=== PATIENT | female | born 1940 | race Caucasian/White ===

== ENCOUNTER → 2017-02-02 | Outpatient (CLI) | payer OTHER, BC | LOC: CAT 14:25 | DX: J32.9 Chronic sinusitis, unspecified (principal) ==

== ENCOUNTER → 2018-07-18 | Outpatient (CLI) | payer OTHER, BC | LOC: BC 01:11 | DX: Z12.31 Encounter for screening mammogram for malignant neoplasm of breast (principal) ==

== ENCOUNTER → 2019-08-14 | Outpatient (CLI) | payer OTHER, BC | LOC: RAD 09:31 | DX: Z12.31 Encounter for screening mammogram for malignant neoplasm of breast (principal) ==

== ENCOUNTER → 2019-11-04 | Outpatient (CLI) | payer OTHER, BC | LOC: SJCVC 15:16 | DX: R94.31 Abnormal electrocardiogram [ECG] [EKG] (principal); I10 Essential (primary) hypertension; E78.2 Mixed hyperlipidemia; K21.0 Gastro-esophageal reflux disease with esophagitis; Z79.899 Other long term (current) drug therapy; Z87.891 Personal history of nicotine dependence ==

== ENCOUNTER → 2020-03-04 | Outpatient (CLI) | payer OTHER, BC | LOC: LAB 08:25 | PROVIDERS: ATTEND Family Medicine | DX: R05 Cough (principal); Z20.828 Contact with and (suspected) exposure to other viral communicable diseases ==

== ENCOUNTER → 2020-09-10 | Outpatient (CLI) | payer OTHER, BC | LOC: BC 09:51 → RAD 09:51 | PROVIDERS: ATTEND Family Medicine | DX: Z12.31 Encounter for screening mammogram for malignant neoplasm of breast (principal) ==

== ENCOUNTER → 2020-11-03 | Outpatient (CLI) | payer OTHER, BC | LOC: SJCVCIMAG 07:16 | PROVIDERS: ATTEND Internal Medicine Cardiovascular Disease | DX: E78.2 Mixed hyperlipidemia (principal); I10 Essential (primary) hypertension; M19.90 Unspecified osteoarthritis, unspecified site ==

== ENCOUNTER → 2021-09-20 | Outpatient (CLI) | payer OTHER, BC | LOC: BC 10:50 | PROVIDERS: ATTEND Family Medicine | DX: Z12.31 Encounter for screening mammogram for malignant neoplasm of breast (principal) ==